=== PATIENT | male | born 1935 | race Two or more races ===

== ENCOUNTER 2019-04-23 05:45 | Day surgery (SDC) | payer OTHER | END 2019-04-23 09:30 | disposition home or self-care (01) | LOC: AMB-ENDOS 05:45 | DX: D12.0 Benign neoplasm of cecum (principal); D12.2 Benign neoplasm of ascending colon; D12.3 Benign neoplasm of transverse colon; D12.4 Benign neoplasm of descending colon; D12.5 Benign neoplasm of sigmoid colon; K64.8 Other hemorrhoids ==

== ENCOUNTER 2021-02-02 06:00 | Day surgery (SDC) | payer OTHER | END 2021-02-02 09:30 | disposition home or self-care (01) | LOC: AMB-ENDOS 06:00 | PROVIDERS: ATTEND Surgery | DX: K62.89 Other specified diseases of anus and rectum (principal); Z20.822 Contact with and (suspected) exposure to COVID-19 ==